=== PATIENT | male | born 1980 | race African-American/Black ===

== ENCOUNTER 2016-12-13 09:08 | Emergency (ER) | payer OTHER ==
[2016-12-13 09:23] VITALS: BP 120/69
[2016-12-13] MEDS ORDERED: Lidocaine 2% PF * 5 ML VIAL INJ ONE (10:49)
--- NOTE | 2016-12-13 12:19 | UC ---
Radha Christianson Matthew, scribed for Rosaura Tarango MD on 12/13/16 at 0950 . Skin Complaint HPI - HPI Summary HPI Summary: A 36 y/o male presents to with an abscess on his right hip since 4-5 days ago. The patient states that he had a similar cyst 8 years ago at the same location, which drained on its own. It then became hard until it flared up 4-5 days ago. Associated symptoms include pain, erythema, and swelling. No Hx of MRSA. FHx of CA. - History of Current Complaint Chief Complaint: UCSkin Stated Complaint: SOFT TISSUE COMPLAINT Hx Obtained From: Patient Onset/Duration: Gradual Onset, Lasting Days, Still Present Skin Exposure Onset/Duration: Days Ago Timing: Constant Onset Severity: Mild Current Severity: Mild Pain Intensity: 9 Pain Scale Used: 0-10 Numeric Location: Other - right hip Character: Swelling, Pain, Redness Aggravating: Touch Alleviating: Nothing Associated Signs & Symptoms: Positive: Negative - Allergy/Home Medications Allergies/Adverse Reactions: Allergies Allergy/AdvReac Type Severity Reaction Status Date / Time No Known Allergies Allergy Verified 03/11/15 09:50 Review of Systems Constitutional: Negative Skin: Other - 3cm abscess on the right hip with swelling, pain, and erythema Eyes: Negative ENT: Negative Respiratory: Negative Cardiovascular: Negative Gastrointestinal: Negative Genitourinary: Negative Motor: Negative Neurovascular: Negative Musculoskeletal: Negative Neurological: Negative Psychological: Negative All Other Systems Reviewed And Are Negative: Yes PMH/Surg Hx/FS Hx/Imm Hx Previously Healthy: Yes Endocrine History Of: Denies: Diabetes, Thyroid Disease Cardiovascular History Of: Denies: Cardiac Disorders, Hypertension Respiratory History Of: Denies: COPD, Asthma GI/ History Of: Denies: Ulcer - Surgical History Surgical History: None - Family History Family History: FHx of [place] - Social History Alcohol Use: None Substance Use Type: Marijuana Smoking Status (MU): Heavy Every Day Tobacco Smoker Type: Cigarettes Length of Time of Smoking/Using Tobacco: 8-10 cigas per day Have You Smoked in the Last Year: Yes Household Exposure Type: Cigarettes Physical Exam Triage Information Reviewed: Yes Appearance: Well-Appearing, Well-Nourished, Pain Distress - mild Vital Signs: Initial Vital Signs Temp 97.7 F 12/13/16 09:19 Pulse 70 12/13/16 09:19 Resp 18 12/13/16 09:19 BP 120/69 12/13/16 09:19 Pulse Ox 98 12/13/16 09:19 Vital Signs Reviewed: Yes Eyes: Positive: Conjunctiva Clear ENT: Positive: Normal ENT inspection Neck: Positive: Supple Respiratory: Positive: No respiratory distress Cardiovascular: Positive: Pulses Normal, Brisk Capillary Refill Musculoskeletal: Positive: Strength Intact, ROM Intact Neurological: Positive: Alert, Muscle Tone Normal Psychological Exam: Normal Skin Exam: Other - right lateral hip abscess, which is round with a 3cm diameter , fluctuant, and surrounding redness 1cm. Course/Dx - Course Course Of Treatment: Pt medications reviewed this visit. The patient gave informed consent for an I&D of the right hip. Time out procedure done before I & D. - Differential Diagnoses - Skin Complaint Differential Diagnoses: Abscess, Cellulitis, MRSA - Diagnoses Provider Diagnoses: Infected sebaceous cyst s/p I&D Procedures - Procedure Summary Procedure Summary: The site had copious sebaceous purulent drainage, sent for culture. - Incision and Drainage Site: Lateral Right Hip Anesthesia: Local, Lidocaine - 2% without epi Instrument(s): Scalpel - #11 Packing: Gauze - iodoform gauze, 1/4 inch Discharge - Discharge Plan Condition: Stable Disposition: HOME Prescriptions: Cephalexin CAP* [Keflex 500 CAP*] 500 mg PO QID #40 cap Patient Education Materials: Abscess (ED), Incision and Drainage (ED), Cephalexin (By mouth) Referrals: Azar Velazquez MD [Medical Doctor] - As Soon As Possible [facility] PHYSICIAN REFERRAL [Outside] Additional Instructions: Please return to Urgent Care in 2 days for follow-up to recheck the packing. We have sent a culture and we will notify you if you need a change in your antibiotic based on those results. Thank you for helping us improve patient care by filling out the My [place]. The documentation as recorded by the Radha villareal Matthew accurately reflects the service I personally performed and the decisions made by me, Rosaura Tarango MD.
== END 2016-12-13 12:28 | disposition home or self-care (01) ==
LOC: UCEAST 09:08
DX: L72.3 Sebaceous cyst (principal); F12.90 Cannabis use, unspecified, uncomplicated; F17.210 Nicotine dependence, cigarettes, uncomplicated
CPT/HCPCS: 10060; 87070; 87205; 87640; 87641; 99212; G0463

== ENCOUNTER 2016-12-15 08:01 | Emergency (ER) | payer OTHER ==
[2016-12-15 08:19] VITALS: BP 131/73
--- NOTE | 2016-12-15 09:02 | UC ---
HPI Wound/Suture Re-check - HPI Summary HPI Summary: here for recheck of abscess I&Ded 2 days ago reports no pain - History Of Current Complaint Chief Complaint: UCSkin Stated Complaint: CYST F/U Time Seen by Provider: 12/15/16 08:49 Hx Obtained From: Patient Onset/Duration: Gradual Onset, Lasting Days Severity: Mild Pain Intensity: 1 Pain Scale Used: 0-10 Numeric Procedure Type: I&D Surgery Date: 12/13/16 - Allergies/Home Medications Allergies/Adverse Reactions: Allergies Allergy/AdvReac Type Severity Reaction Status Date / Time No Known Allergies Allergy Verified 12/15/16 08:19 PMH/Surg Hx/FS Hx/Imm Hx Previously Healthy: Yes Endocrine History Of: Denies: Diabetes, Thyroid Disease Cardiovascular History Of: Denies: Cardiac Disorders, Hypertension Respiratory History Of: Denies: COPD, Asthma GI/ History Of: Denies: Ulcer - Surgical History Surgical History: None - Family History Known Family History: Positive: Hypertension, Diabetes Family History: FHx of [place] - Social History Alcohol Use: None Substance Use Type: Marijuana Substance Use Comment - Amount & Last Used: daily usage Smoking Status (MU): Heavy Every Day Tobacco Smoker Type: Cigarettes Amount Used/How Often: 1/2 ppd Length of Time of Smoking/Using Tobacco: started at age 20 Have You Smoked in the Last Year: Yes Household Exposure Type: Cigarettes Review of Systems Constitutional: Negative Skin: Negative Eyes: Negative ENT: Negative Respiratory: Negative Cardiovascular: Negative Gastrointestinal: Negative Genitourinary: Negative Motor: Negative Neurovascular: Negative Musculoskeletal: Negative Neurological: Negative Psychological: Negative All Other Systems Reviewed And Are Negative: Yes Physical Exam Triage Information Reviewed: Yes Appearance: No Pain Distress, Well-Nourished Vital Signs: Initial Vital Signs Temp 98 F 12/15/16 08:13 Pulse 63 12/15/16 08:13 Resp 14 12/15/16 08:13 BP 131/73 12/15/16 08:13 Pulse Ox 100 12/15/16 08:13 Vital Signs Reviewed: Yes Eyes: Positive: Conjunctiva Clear ENT: Positive: Hearing grossly normal. Negative: Nasal congestion, Nasal drainage, Trismus, Muffled/hoarse voice Neck: Positive: Supple, Nontender Respiratory: Positive: Lungs clear, Normal breath sounds, No respiratory distress, No accessory muscle use Cardiovascular: Positive: RRR, No Murmur Abdomen Description: Positive: Nontender, No Organomegaly, Soft Bowel Sounds: Positive: Present Musculoskeletal: Positive: ROM Intact, No Edema Neurological: Positive: Alert, Muscle Tone Normal Psychological Exam: Normal Skin Exam: Other - see imabe Course/Dx - Course Course Of Treatment: packing removed. sterile dressing applied - Differential Dx - Laceration/Wound Provider Diagnoses: recheck right thigh abscess Discharge - Discharge Plan Condition: Stable Disposition: HOME Patient Education Materials: Abscess Follow-up (ED) Referrals: No Primary Care Phys,NOPCP [Primary Care Provider] - Additional Instructions: warm soapy compresses or sitz bath 4x day until healed recheck for worsening symptoms recheck after you finish the antibiotics if not completely better culture is still pending Images Front/Back of Body, Lg ([place]): 1 - slight induration. no fluctuance. scant d/c
== END 2016-12-15 09:02 | disposition home or self-care (01) ==
LOC: UCEAST 08:01
DX: Z48.817 Encounter for surgical aftercare following surgery on the skin and subcutaneous tissue (principal)
CPT/HCPCS: 99211; G0463

== ENCOUNTER 2017-09-08 16:09 | Emergency (ER) | payer OTHER ==
[2017-09-08 16:35] VITALS: BP 134/85
== END 2017-09-08 18:36 | disposition left against medical advice (07) ==
LOC: UCEAST 16:09
DX: K08.89 Other specified disorders of teeth and supporting structures (principal); Z53.21 Procedure and treatment not carried out due to patient leaving prior to being seen by health care provider

== ENCOUNTER 2018-07-29 07:01 | Emergency (ER) | payer OTHER ==
[2018-07-29 07:10] VITALS: BP 141/95
--- NOTE | 2018-07-29 07:19 | UC ---
Throat Pain/Nasal Harsh HPI - HPI Summary HPI Summary: 38-year-old male comes to clinic today with chief complaint of sinus congestion. Symptoms been going on for about 5 days. He is a smoker. He's having sinus pressure and pain. He's had yellow rhinorrhea with some blood in. No ear pain no chest congestion or shortness of breath. He's been trying over -the-counter decongestant and feel like getting worse. No fevers. - History of Current Complaint Chief Complaint: UCGeneralIllness Stated Complaint: SINUS COMPLAINT Time Seen by Provider: 07/29/18 07:11 Pain Intensity: 6 - Allergies/Home Medications Allergies/Adverse Reactions: Allergies Allergy/AdvReac Type Severity Reaction Status Date / Time No Known Allergies Allergy Verified 07/29/18 07:10 Home Medications: Home Medications Zicam Congestion Relief [place] 07/29/18 [History] PMH/Surg Hx/FS Hx/Imm Hx Previously Healthy: Yes - Surgical History Surgical History: None - Family History Known Family History: Positive: Hypertension, Diabetes Family History: FHx of [place] - Social History Alcohol Use: Rare Substance Use Type: Marijuana Substance Use Comment - Amount & Last Used: daily usage Smoking Status (MU): Heavy Every Day Tobacco Smoker Type: Cigarettes Amount Used/How Often: 1/4 ppd Length of Time of Smoking/Using Tobacco: started at age 20 Have You Smoked in the Last Year: Yes Household Exposure Type: Cigarettes Review of Systems All Other Systems Reviewed And Are Negative: Yes Constitutional: Positive: Negative Skin: Positive: Negative Eyes: Positive: Negative ENT: Positive: Nasal Discharge, Sinus Congestion, Sinus Pain/Tenderness Respiratory: Positive: Negative Cardiovascular: Positive: Negative Gastrointestinal: Positive: Negative Motor: Positive: Negative Neurovascular: Positive: Negative Musculoskeletal: Positive: Negative Neurological: Positive: Negative Psychological: Positive: Negative Is Patient Immunocompromised?: No Physical Exam Triage Information Reviewed: Yes Appearance: No Pain Distress, Well-Nourished, Ill-Appearing - mild Vital Signs: Initial Vital Signs Temp 97.6 F 07/29/18 07:07 Pulse 77 07/29/18 07:07 Resp 16 07/29/18 07:07 BP 141/95 07/29/18 07:07 Pulse Ox 100 07/29/18 07:07 Vital Signs Reviewed: Yes Eye Exam: Normal Eyes: Positive: Conjunctiva Clear ENT: Positive: Pharyngeal erythema, Nasal congestion, Nasal drainage, TMs normal Neck exam: Normal Neck: Positive: Supple Respiratory: Positive: Lungs clear, Normal breath sounds, No respiratory distress Cardiovascular: Positive: RRR Musculoskeletal Exam: Normal Musculoskeletal: Positive: Strength Intact, ROM Intact Neurological Exam: Normal Neurological: Positive: Alert, Muscle Tone Normal Psychological Exam: Normal Psychological: Positive: Age Appropriate Behavior Skin Exam: Normal Throat Pain/Nasal Course/Dx - Course Course Of Treatment: DISCUSSED VIRAL VERSES BACTERIAL INFECTION AND THE ROLE OF ANTIBIOTICS. THE PATIENT WISHES TO BE ON ANTIBIOTIC AT THIS TIME. - Differential Dx/Diagnosis Provider Diagnosis: Sinusitis Discharge - Sign-Out/Discharge Documenting (check all that apply): Patient Departure All imaging exams completed and their final reports reviewed: No Studies - Discharge Plan Condition: Stable Disposition: HOME Prescriptions: Amoxicillin/Clavulanate TAB* [Augmentin TAB 875*] 875 mg PO BID #20 tab Patient Education Materials: Sinusitis (ED) Referrals: [facility] [place] PHYSICIAN REFERRAL [Outside] Additional Instructions: FOLLOW UP WITH YOUR DOCTOR IF NOT COMPLETELY IMPROVED. GET RECHECKED FOR ANY WORSENING OF YOUR CONDITION OR QUESTIONS OR CONCERNS. - Billing Disposition and Condition Condition: STABLE Disposition: Home
== END 2018-07-29 07:20 | disposition home or self-care (01) ==
LOC: UCEAST 07:01
DX: J32.9 Chronic sinusitis, unspecified (principal); F17.210 Nicotine dependence, cigarettes, uncomplicated
CPT/HCPCS: 99212; G0463

== ENCOUNTER 2018-12-10 15:12 | Emergency (ER) | payer OTHER ==
[2018-12-10 15:20] VITALS: BP 121/81
--- NOTE | 2018-12-10 15:44 | UC ---
Complaint Male HPI - HPI Summary HPI Summary: Sexual partner diagnosed with trichamonas infection. No symptoms. - History of Current Complaint Chief Complaint: UCSTDScreening Stated Complaint: STD TESTING Time Seen by Provider: 12/10/18 15:35 Hx Obtained From: Patient Onset/Duration: Other - No symptoms. Severity Currently: None Pain Intensity: 0 Location: None Aggravating Factor(s): Nothing Alleviating Factor(s): Nothing Associated Signs And Symptoms: Positive: Negative - Allergies/Home Medications Allergies/Adverse Reactions: Allergies Allergy/AdvReac Type Severity Reaction Status Date / Time No Known Allergies Allergy Verified 12/10/18 15:20 PMH/Surg Hx/FS Hx/Imm Hx Previously Healthy: Yes - Surgical History Surgical History: None - Family History Known Family History: Positive: Hypertension, Diabetes Family History: FHx of [place] - Social History Occupation: Employed Full-time Alcohol Use: Rare Substance Use Type: Marijuana Substance Use Comment - Amount & Last Used: daily usage Smoking Status (MU): Heavy Every Day Tobacco Smoker Type: Cigarettes Amount Used/How Often: 1/4 ppd Length of Time of Smoking/Using Tobacco: started at age 20 Have You Smoked in the Last Year: Yes Household Exposure Type: Cigarettes Review of Systems All Other Systems Reviewed And Are Negative: Yes Is Patient Immunocompromised?: No Physical Exam Triage Information Reviewed: Yes Appearance: Well-Appearing, No Pain Distress, Well-Nourished Vital Signs: Initial Vital Signs Temp 98.5 F 12/10/18 15:16 Pulse 98 12/10/18 15:16 Resp 16 12/10/18 15:16 BP 121/81 12/10/18 15:16 Pulse Ox 100 12/10/18 15:16 Vital Signs Reviewed: Yes Eyes: Positive: Conjunctiva Inflamed Neck exam: Normal Respiratory Exam: Normal Cardiovascular Exam: Normal Abdominal Exam: Normal Male Genital Exam: Positive: Normal Genitalia Musculoskeletal Exam: Normal Neurological Exam: Normal Psychological Exam: Normal Skin Exam: Normal Complaint Male Course/Dx - Differential Dx/Diagnosis Differential Diagnosis/HQI/PQRI: Epididymitis, Prostatitis, Urinary Tract Infection Provider Diagnosis: Exposure to trichomonas Discharge - Sign-Out/Discharge Documenting (check all that apply): Patient Departure All imaging exams completed and their final reports reviewed: No Studies - Discharge Plan Condition: Stable Disposition: HOME Prescriptions: metroNIDAZOLE * [Flagyl] 500 mg PO BID #14 tablet Patient Education Materials: Trichomoniasis (ED), Metronidazole (By mouth), Safe Sex (ED) Referrals: No Primary Care Phys,NOPCP [Primary Care Provider] - - Billing Disposition and Condition Condition: STABLE Disposition: Home
--- NOTE | 2018-12-11 15:32 | UC ---
- Progress Note Progress Note: 12/11/2018 Syphilis screen: negative Pt Tx for Trichomonas w/ Metronidazole PO NO change Nelly Church PA-C Course/Dx - Diagnoses Provider Diagnoses: Exposure to trichomonas Discharge - Sign-Out/Discharge Documenting (check all that apply): Post-Discharge Follow Up All imaging exams completed and their final reports reviewed: No Studies - Discharge Plan Condition: Stable Disposition: HOME Prescriptions: metroNIDAZOLE * [Flagyl] 500 mg PO BID #14 tablet Patient Education Materials: Metronidazole (By mouth), Safe Sex (ED), Trichomoniasis (ED) Referrals: No Primary Care Phys,NOPCP [Primary Care Provider] - - Billing Disposition and Condition Condition: STABLE Disposition: Home
[2018-12-12 11:37] LABS: Herpes Simplex Virus I IgG AB Negative (Negative); Herpes Simplex Virus II IgG AB Negative (Negative)
[2018-12-12 13:02] LABS: Neisseria gonorrhoeae (GC) RNA Negative (Negative)
== END 2018-12-10 16:07 | disposition home or self-care (01) ==
LOC: UCEAST 15:12
DX: Z20.2 Contact with and (suspected) exposure to infections with a predominantly sexual mode of transmission (principal); F17.210 Nicotine dependence, cigarettes, uncomplicated
CPT/HCPCS: 36415; 86694; 86695; 86696; 86780; 87389; 87491; 87591; 99212; G0463; G0475

== ENCOUNTER 2019-09-17 15:10 | Emergency (ER) | payer OTHER ==
[2019-09-17 15:24] VITALS: BP 107/68
--- NOTE | 2019-09-17 15:32 | UC ---
FLU HPI - HPI Summary HPI Summary: 39 yo male presents with flu-like symptoms. He tells me that over the last 2 days has had a dry cough, fatigue, body aches, and feeling feverish. He works at [employer] and has been exposed to many individuals with the flu. He did not get a flu shot this year. He has been taking ibuprofen OTC with good relief. Denies sinus symptoms, sore throat, rash, SOB, chest pain, abdominal pain, n/v. He does smoke daily. - History of Current Complaint Chief Complaint: UCGeneralIllness Stated Complaint: FLU LIKE SYMPTOMS Time Seen by Provider: 09/17/19 15:31 Hx Obtained From: Patient Onset/Duration: Sudden Onset Severity Currently: Moderate Severity Initially: Moderate Pain Intensity: 8 Pain Scale Used: 0-10 Numeric - Allergy/Home Medications Allergies/Adverse Reactions: Allergies Allergy/AdvReac Type Severity Reaction Status Date / Time No Known Allergies Allergy Verified 09/17/19 15:24 Home Medications: Home Medications D-Methorphan/PE/Acetaminophen [Tylenol Cold Multi-Symp Caplet] 1 each PO Q4H [History Confirmed 09/17/19] Ibuprofen TAB* [Motrin TAB* 600 MG] 600 mg PO Q6H PRN 09/17/19 [History Confirmed 09/17/19] PMH/Surg Hx/FS Hx/Imm Hx - Additional Past Medical History Additional PMH: None - Surgical History Surgical History: None - Family History Known Family History: Positive: Hypertension, Diabetes Family History: FHx of [place] - Social History Alcohol Use: Daily Substance Use Type: None Substance Use Comment - Amount & Last Used: daily usage Smoking Status (MU): Light Every Day Tobacco Smoker Type: Cigarettes Amount Used/How Often: 1/4 ppd Length of Time of Smoking/Using Tobacco: started at age 20 Have You Smoked in the Last Year: Yes Household Exposure Type: Cigarettes Review of Systems All Other Systems Reviewed And Are Negative: No Constitutional: Positive: Fatigue, Other - Body aches Skin: Positive: Negative Eyes: Positive: Negative ENT: Positive: Negative Respiratory: Positive: Cough Cardiovascular: Positive: Negative Gastrointestinal: Positive: Negative Genitourinary: Positive: Negative Neurovascular: Positive: Negative Musculoskeletal: Positive: Negative Neurological/Mental Status: Positive: Headache Psychological: Positive: Negative Physical Exam - Summary Physical Exam Summary: GENERAL: NAD. WDWN. No pain distress. SKIN: No rashes, sores, lesions, or open wounds. HEENT: Head: AT/NC Eyes: EOM intact. Conjunctiva clear without inflammation or discharge. Ears: Hearing grossly normal. TMs intact, no bulging, erythema, or edema. Nose: Nasal mucosa pink and moist. NTTP maxillary and frontal sinus. Throat: Posterior oropharynx without exudates, erythema, or tonsillar enlargement. Uvula midline. NECK: Supple. Nontender. No lymphadenopathy. CHEST: Mild wheezing at lung bases. No accessory muscle use. Breathing comfortably and in no distress. CV: RRR. Pulses intact. Cap refill <2seconds NEURO: Alert. PSYCH: Age appropriate behavior. Triage Information Reviewed: Yes Vital Signs: Initial Vital Signs Temp 98.6 F 09/17/19 15:20 Pulse 82 09/17/19 15:20 Resp 16 09/17/19 15:20 BP 107/68 09/17/19 15:20 Pulse Ox 99 09/17/19 15:20 D-Methorphan/PE/Acetaminophen [Tylenol Cold Multi-Symp Caplet] 1 each PO Q4H [History Confirmed 09/17/19] Ibuprofen TAB* [Motrin TAB* 600 MG] 600 mg PO Q6H PRN 09/17/19 [History Confirmed 09/17/19] Laboratory Tests 09/17/19 15:46 Influenza A (Rapid) Negative Influenza B (Rapid) Negative Vital Signs Reviewed: Yes Diagnostics - Radiology CXR Radiology Interpretation Completed By: Radiologist Summary of Radiographic Findings: IMPRESSION: NO EVIDENCE FOR ACTIVE CARDIOPULMONARY DISEASE. Flu Course/Dx - Course Course Of Treatment: POC flu negative. CXR as above. Suspect viral syndrome/bronchitis. Will rx for albuterol inhaler and have him continue supportive care. Recheck if symptoms do not improve - Differential Dx/Diagnosis Provider Diagnosis: Viral syndrome Discharge ED - Sign-Out/Discharge Documenting (check all that apply): Patient Departure All imaging exams completed and their final reports reviewed: Yes - Discharge Plan Condition: Stable Disposition: HOME Prescriptions: Albuterol HFA INHALER* [Ventolin HFA Inhaler*] 1 - 2 puff INH Q6H PRN #1 mdi PRN Reason: Sob/Wheezing Patient Education Materials: Acute Bronchitis (ED), Viral Syndrome (ED) Forms: *Work Release Referrals: No Primary Care Phys,NOPCP [Primary Care Provider] - Additional Instructions: If you develop a fever, shortness of breath, chest pain, new or worsening symptoms - please call your PCP or go to the ED immediately. Your symptoms are likely from a viral infection. Viral infections do not respond to antibiotics and are limited to the treatment of symptoms. Viral infections typically run their course in 7-10 days. Drink plenty of fluids, especially if you are running any fever. Use salt water gargles several times a day. Take over the counter acetaminophen (Tylenol) or ibuprofen (Advil, Motrin) according to directions as needed for pain or fever. You may also use Chloraseptic spray or Cepacol lonzenges according to directions which contain a numbing medication and can provide some temporary relief from a sore throat. Return here or follow up with your primary care provider in 7 days if symptoms persist. - Billing Disposition and Condition Condition: STABLE Disposition: Home - Attestation Statements Provider Attestation: This patient was not seen by me. I was available for consult. Chart reviewed. ang
[2019-09-17 15:58] LABS: Influenza A Molecular Negative (Negative); Influenza B Molecular Negative (Negative)
== END 2019-09-17 16:35 | disposition home or self-care (01) ==
LOC: UCEAST 15:10
DX: B34.9 Viral infection, unspecified (principal); R53.83 Other fatigue; R05 Cough; R51 Headache; F17.210 Nicotine dependence, cigarettes, uncomplicated
CPT/HCPCS: 71046; 99212; G0463